=== PATIENT | female | born 1980 ===

== ENCOUNTER 2021-07-11 19:39 | Emergency (ER) | payer OTHER ==
[~2021-07-11] VITALS: Ht 167.6 cm; Wt 77.1 kg
[2021-07-11] MEDS ORDERED: ZOVIRAX800 MG (20:07)
[2021-07-12] MEDS ORDERED: PROTONIX20 MG PO (00:46)
[2021-07-12] MEDS ORDERED: PEPCID AC20 MG PO (00:46)
[2021-07-12] MEDS ORDERED: CARAFATE1 GM PO (00:46)
[2021-07-12] MEDS ORDERED: PERCOCET 5-3251 EACH PO (00:46)
== END 2021-07-12 01:37 | disposition home or self-care (01) ==
LOC: ER 19:39
DX: K29.70 Gastritis, unspecified, without bleeding (principal); H92.01 Otalgia, right ear; Z88.2 Allergy status to sulfonamides